=== PATIENT | male | born 1960 | race Asian ===

== ENCOUNTER 2020-04-20 11:50 | Outpatient (REF) | payer OTHER, SELFPAY | END 2020-04-20 11:51 | disposition home or self-care (01) | LOC: HO.BBR 11:50 | PROVIDERS: Visit Provider Internal Medicine | DX: D75.1 Secondary polycythemia (principal) | CPT/HCPCS: 36415; 85018; 99195 ==

== ENCOUNTER 2020-09-12 14:21 | Outpatient (REF) | payer OTHER, SELFPAY | END 2020-09-12 14:22 | disposition home or self-care (01) | LOC: HO.BBR 14:21 | PROVIDERS: Visit Provider Internal Medicine | DX: D45 Polycythemia vera (principal) | CPT/HCPCS: 85014; 85018; 99195 ==

== ENCOUNTER 2021-01-10 13:03 | Outpatient (REF) | payer OTHER, SELFPAY | END 2021-01-10 13:04 | disposition home or self-care (01) | LOC: HO.BBR 13:03 | PROVIDERS: Visit Provider Internal Medicine | DX: D45 Polycythemia vera (principal) | CPT/HCPCS: 36415; 85018; 99195 ==

== ENCOUNTER 2021-05-14 13:00 | Outpatient (REF) | payer OTHER, SELFPAY | END 2021-05-14 13:01 | disposition home or self-care (01) | LOC: HO.BBR 13:00 | PROVIDERS: Visit Provider Internal Medicine | DX: D45 Polycythemia vera (principal) | CPT/HCPCS: 85014; 85018; 99195 ==

== ENCOUNTER 2021-08-28 14:00 | Outpatient (REF) | payer OTHER, SELFPAY | END 2021-08-28 14:01 | disposition home or self-care (01) | LOC: HO.BBR 14:00 | PROVIDERS: Visit Provider Internal Medicine | DX: D45 Polycythemia vera (principal) | CPT/HCPCS: 85018; 99195 ==

== ENCOUNTER 2021-12-28 10:43 | Outpatient (REF) | payer OTHER, SELFPAY | END 2021-12-28 10:44 | disposition home or self-care (01) | LOC: HO.BBR 10:43 | PROVIDERS: Visit Provider Internal Medicine | DX: D45 Polycythemia vera (principal) | CPT/HCPCS: 85018; 99195 ==

== ENCOUNTER 2022-04-29 10:54 | Outpatient (REF) | payer OTHER, SELFPAY | END 2022-04-29 10:55 | disposition home or self-care (01) | LOC: HO.BBR 10:54 | PROVIDERS: Visit Provider Internal Medicine | DX: Z13.89 Encounter for screening for other disorder (principal) ==

== ENCOUNTER 2022-07-29 10:51 | Outpatient (REF) | payer OTHER, SELFPAY | END 2022-07-29 10:52 | disposition home or self-care (01) | LOC: HO.BBR 10:51 | PROVIDERS: Visit Provider Internal Medicine | DX: D45 Polycythemia vera (principal) | CPT/HCPCS: 85014; 85018; 99195 ==

== ENCOUNTER 2022-10-29 10:48 | Outpatient (REF) | payer OTHER, SELFPAY | END 2022-10-29 10:49 | disposition home or self-care (01) | LOC: HO.BBR 10:48 | PROVIDERS: Visit Provider Internal Medicine | DX: D45 Polycythemia vera (principal) | CPT/HCPCS: 85018; 99195 ==

== ENCOUNTER 2023-01-28 10:57 | Outpatient (REF) | payer OTHER, SELFPAY | END 2023-01-28 10:58 | disposition home or self-care (01) | LOC: HO.BBR 10:57 | PROVIDERS: Visit Provider Internal Medicine | DX: D75.1 Secondary polycythemia (principal) | CPT/HCPCS: 85018; 99195 ==

== ENCOUNTER 2023-04-29 10:57 | Outpatient (REF) | payer OTHER, SELFPAY | END 2023-04-29 10:58 | disposition home or self-care (01) | LOC: HO.BBR 10:57 | PROVIDERS: Visit Provider Internal Medicine | DX: D75.1 Secondary polycythemia (principal) | CPT/HCPCS: 85018; 99195 ==

== ENCOUNTER 2023-07-29 10:51 | Outpatient (REF) | payer OTHER, SELFPAY | END 2023-07-29 10:52 | disposition home or self-care (01) | LOC: HO.BBR 10:51 | PROVIDERS: Visit Provider Internal Medicine | DX: D75.1 Secondary polycythemia (principal) | CPT/HCPCS: 85018; 99195 ==

== ENCOUNTER 2023-10-29 10:39 | Outpatient (REF) | payer OTHER, SELFPAY | END 2023-10-29 10:40 | disposition home or self-care (01) | LOC: HO.BBR 10:39 | PROVIDERS: Visit Provider Internal Medicine | DX: D75.1 Secondary polycythemia (principal) | CPT/HCPCS: 85014; 85018; 99195 ==

== ENCOUNTER 2024-01-20 10:02 | Outpatient (REF) | payer OTHER, SELFPAY | END 2024-01-20 10:03 | disposition home or self-care (01) | LOC: HO.BBR 10:02 | PROVIDERS: Visit Provider Internal Medicine | DX: D75.1 Secondary polycythemia (principal) | CPT/HCPCS: 85018; 99195 ==

== ENCOUNTER 2024-05-07 13:00 | Outpatient (REF) | payer OTHER, SELFPAY | END 2024-05-07 13:01 | disposition home or self-care (01) | LOC: HO.BBR 13:00 | PROVIDERS: Visit Provider Internal Medicine | DX: D75.1 Secondary polycythemia (principal) | CPT/HCPCS: 85014; 85018; 99195 ==

== ENCOUNTER 2024-10-18 12:35 | Outpatient (REF) | payer OTHER, SELFPAY ==
--- OUTSIDE RECORDS SUMMARY | 2024-10-18 13:35 | XMS_ITS | Clinical Summary ---
Author Organization [facility] Address [address] [facility] [address] [place] [address] Phone Care Team Providers Care Packing Attendant Name Role Phone Siri Gonzalez PA-C Primary Care Provider + Allergies No known active allergies Medications Vitamin D, Cholecalciferol , 25 MCG (1000 UT) tablet Take 1 tablet by mouth 1 (one) time each day 90 tablet 3 1 Active famotidine (Pepcid) 40 MG tablet Take 1 tablet (40 mg total) by mouth 1 (one) time each day 90 tablet 3 2 Active [place]-3 Fatty Acids (Fish Oil) 1000 MG capsule delayed-release Take by mouth 2 (two) times a day Active fluticasone (FLONASE) 50 MCG/ACT nasal spray Administer 1 spray into each nostril 1 (one) time each day Active spironolactone- hydroCHLOROthia zide (Aldactazide) 25-25 MG per tablet Take 1 tablet by mouth 3 (three) times a week 36 tablet 3 4 01/28/20 25 Active pravastatin (PRAVACHOL) 40 MG tablet TAKE 1 TABLET ONCE DAILY 30 tablet 11 4 Active tamsulosin (FLOMAX) 0.4 MG 24 hr capsule TAKE 1 CAPSULE ONCE DAILY 90 capsule 3 4 Active Diclofenac Sodium 1 % gel Apply topically Active lisinopril 20 MG tablet Take 1 tablet (20 mg total) by mouth 1 (one) time each day 90 tablet 3 4 03/29/20 25 Active Active Problems Problem Noted Date Diagnosed Date Hypertension 01/10/2021 Dyslipidemia 01/10/2021 Small kidney <Unspecified side> 01/10/2021 Polycythemia 01/10/2021 Cyst of kidney 01/10/2021 Monoclonal gammopathy of undetermined significan ce (MGUS) 01/10/2021 IgA nephropathy 01/10/2021 Proteinuria 07/12/2020 Hypertensive heart disease without heart failure 07/12/2020 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 [address] [phone] Ko Truong MD Chronic kidney disease, stage 2 (mild); IgA nephropathy; Hypertensive heart disease without heart failure, not otherwise specified; Hypertension; Monoclonal gammopathy of undetermined significance (MGUS); Proteinuria, not otherwise specified from Last 3 Months Immunizations Immunization Administration Dates Next Due Influenza TIV (IM) 02/16/2019,04/20/2018 Family History Medical History Relation Comments Hypertension Mother Relation Status Comments Father Mother Social History Tobacco Use Types Packs/Day Years Used Date Smoking Tobacco: Never Smokeless Tobacco: Never Alcohol Use Standard Drinks/Week Comments No 0 (1 standard drink = 0.6 oz pur e alcohol) Sex and Gender Information Value Date Recorded Sex Assigned at Not on file Legal Sex Male 5:12 PM EST Gender Identity Not on file Sexual Orientation Not on file Last Filed Vital Signs Vital Sign Reading Time Taken Comments Blood Pressure 98/70 03/29/2024 9:22 AM EST Pulse 105 03/29/2024 9:22 AM EST Temperature - - Respiratory Rate - - Oxygen Saturation 97% 03/29/2024 9:22 AM EST Inhaled Oxygen Concentration - - Weight 65.8 kg (145 lb) 03/29/2024 9:22 AM EST Height 157.5 cm (5' 2 ) 01/28/2024 8:39 AM EDT Body Mass Index 26.52 01/28/2024 8:39 AM EDT Plan of Treatment Upcoming Encounters Date Type Department Care Team (Late st Contact Info) Description 10/28/2024 9:00 AM EDT Office Visit [facility] [address] [phone] Ko Truong MD [address] [phone] Health Maintenance Due Date Last Done Comments Pneumococcal Vaccine: 50+ Years (1 of 2 - PCV) 1980 Colorectal Cancer Screening: Annual FOBT 2010 Colorectal Cancer Screening: Colonoscopy 2010 Colorectal Cancer Screening: Sigmoidoscopy 2010 Influenza Vaccine (Season Ended) 2025 02/16/2019, 04/20/2018 Hepatitis B Vaccine Aged Out 03/29/2024, 01/30/2024, 01/28/2024, Additional history exists No longer eligible based on patient's age to complete this topic Care Teams Packing Attendant Relationship Specialty Start Date End Date Siri Gonzalez PA-C [address] [place], [place] PCP - General Physician Veterinary Technology Instructor 01/11/21
== END 2024-10-18 12:36 | disposition home or self-care (01) ==
LOC: HO.BBR 12:35
PROVIDERS: Visit Provider Internal Medicine
DX: D75.1 Secondary polycythemia (principal)
CPT/HCPCS: 85014; 85018; 99195

== ENCOUNTER 2024-10-19 12:37 | Outpatient (REF) | payer OTHER, SELFPAY ==
--- OUTSIDE RECORDS SUMMARY | 2024-10-19 13:58 | XMS_ITS | Clinical Summary ---
Author Organization [facility] Address [address] [facility] [address] [place] [address] Phone Care Team Providers Care Critical Care Specialist Name Role Phone Siri Gonzalez PA-C Primary Care Provider + Allergies No known active allergies Medications Vitamin D, Cholecalciferol , 25 MCG (1000 UT) tablet Take 1 tablet by mouth 1 (one) time each day 90 tablet 3 1 Active famotidine (Pepcid) 40 MG tablet Take 1 tablet (40 mg total) by mouth 1 (one) time each day 90 tablet 3 2 Active [place]-3 Fatty Acids (Fish Oil) 1000 MG capsule [...] Orders Only [facility] [address] [phone] Ko Truong MD Chronic kidney disease, stage [...] Visit [facility] [address] [phone] Ko Truong MD [address] [facility] [address] [place] [address] Health Maintenance Due Date Last Done Comments Pneumococcal Vaccine: 50+ Years (1 of 2 - PCV) 1980 Colorectal Cancer Screening: Annual FOBT 2010 Colorectal Cancer Screening: Colonoscopy 2010 Colorectal Cancer Screening: Sigmoidoscopy 2010 Influenza Vaccine (Season Ended) 2025 02/16/2019, 04/20/2018 Hepatitis B Vaccine Aged Out 03/29/2024, 01/30/2024, 01/28/2024, Additional history exists No longer eligible based on patient's age to complete this topic Procedures Procedure Name Priority Date/Time Associated Diagnosis Comments PROTEIN / CREATININE RATIO, URINE Routine 10/18/2024 8:35 AM EDT Chronic kidney disease, stage 2 (mild) IgA nephropathy Hypertensive heart disease without heart failure, not otherwise specified Hypertension Monoclonal gammopathy of undetermined significance (MGUS) Proteinuria, not otherwise specified CBC AND DIFFERENTIAL Routine 10/18/2024 8:35 AM EDT Chronic kidney disease, stage 2 (mild) IgA nephropathy Hypertensive heart disease without heart failure, not otherwise specified Hypertension Monoclonal gammopathy of undetermined significance (MGUS) Proteinuria, not otherwise specified VITAMIN D 25 HYDROXY Routine 10/18/2024 8:35 AM EDT Chronic kidney disease, stage 2 (mild) IgA nephropathy Hypertensive heart disease without heart failure, not otherwise specified Hypertension Monoclonal gammopathy of undetermined significance (MGUS) Proteinuria, not otherwise specified PTH, INTACT Routine 10/18/2024 8:35 AM EDT Chronic kidney disease, stage 2 (mild) IgA nephropathy Hypertensive heart disease without heart failure, not otherwise specified Hypertension Monoclonal gammopathy of undetermined significance (MGUS) Proteinuria, not otherwise specified PHOSPHATE ( PHOSPHORUS) Routine 10/18/2024 8:35 AM EDT Chronic kidney disease, stage 2 (mild) IgA nephropathy Hypertensive heart disease without heart failure, not otherwise specified Hypertension Monoclonal gammopathy of undetermined significance (MGUS) Proteinuria, not otherwise specified MAGNESIUM Routine 10/18/2024 8:35 AM EDT Chronic kidney disease, stage 2 (mild) IgA nephropathy Hypertensive heart disease without heart failure, not otherwise specified Hypertension Monoclonal gammopathy of undetermined significance (MGUS) Proteinuria, not otherwise specified URIC ACID Routine 10/18/2024 8:35 AM EDT Chronic kidney disease, stage 2 (mild) IgA nephropathy Hypertensive heart disease without heart failure, not otherwise specified Hypertension Monoclonal gammopathy of undetermined significance (MGUS) Proteinuria, not otherwise specified COMPREHENSIVE METABOLIC PANEL Routine 10/18/2024 8:35 AM EDT Chronic kidney disease, stage 2 (mild) IgA nephropathy Hypertensive heart disease without heart failure, not otherwise specified Hypertension Monoclonal gammopathy of undetermined significance (MGUS) Proteinuria, not otherwise specified from Last 3 Months Results * Vitamin D 25 Hydroxy (10/18/2024 8:35 AM EDT) Vitamin D, 25-OH, Total 65.0 30.0 - 100.0 ng/mL [facility] Comment: Vitamin D deficiency has been defined by the [employer] and an Endocrine Society practice guideline as a level of serum 25-OH vitamin D less than 20 ng/mL (1,2). The Endocrine Society went on to further define vitamin D insufficiency as a level between 21 and 29 ng/mL (2). 1. IOM ([employer]). 2010. Dietary reference ?? intakes for calcium and D. [place]: The ?? National Academies Press. 2. Omayra MF, Edmund NC, Lars VELA, et al. ?? Evaluation, treatment, and prevention of vitamin D ?? deficiency: an Endocrine Society clinical practice ?? guideline. JCEM. 2010; 96(7):1911-30. Blood specimen (specimen) Venous blood / Unknown 10/18/2024 8:35 AM EDT 10/18/2024 us Ko Truong MD LAB BLOOD ORDERABLES Final Re sult [facility] [address] [place] [phone] * CBC and Differential (10/18/2024 8:35 AM EDT) [facility] WBC 7.0 3.4 - 10.8 x10E3/uL [facility] RBC 5.53 4.14 - 5.80 x10E6/uL [facility] Hemoglobin 16.4 13.0 - 17.7 g/dL [facility] Hematocrit 49.5 37.5 - 51.0 % [facility] MCV 90 79 - 97 fL [facility] MCH 29.7 26.6 - 33.0 pg [facility] MCHC 33.1 31.5 - 35.7 g/dL [facility] RDW 13.9 11.6 - 15.4 % [facility] Platelets 381 150 - 450 x10E3/uL [facility] Neutrophils Relative 68 Not Estab. % [facility] Lymphocytes Relative 22 Not Estab. % [facility] Monocytes 8 Not Estab. % [facility] Eosinophils Relative 2 Not Estab. % [facility] Basophils Relative 0 Not Estab. % [facility] Neutrophils Absolute 4.7 1.4 - 7.0 x10E3/uL [facility] Lymphocytes Absolute 1.6 0.7 - 3.1 x10E3/uL [facility] Monocytes Absolute 0.6 0.1 - 0.9 x10E3/uL [facility] Eosinophils Absolute 0.2 0.0 - 0.4 x10E3/uL [facility] Basophils Absolute 0.0 0.0 - 0.2 x10E3/uL [facility] Immature Granulocytes 0 Not Estab. % [facility] Immature Grans (Absolute) 0.0 0.0 - 0.1 x10E3/uL [facility] Blood specimen (specimen) Venous blood / Unknown 10/18/2024 8:35 AM EDT 10/18/2024 Ko Truong MD LAB BLOOD ORDERABLES Final Re sult Performing Organization Address [facility] de Phone Number [facility] [address] [place] [address] * Uric Acid (10/18/2024 8:35 AM EDT) Uric Acid 8.3 3.8 - 8.4 mg/dL [facility] Comment:Therapeutic target f or gout patients: <6.0 Blood specimen (specimen) Venous blood / Unknown 10/18/2024 8:35 AM EDT 10/18/2024 Ko Truong MD LAB BLOOD ORDERABLES Final Re sult Performing Organization Address [facility] de Phone Number [facility] [address] [place] [address] * Phosphorus (10/18/2024 8:35 AM EDT) Phosphorus 3.4 2.8 - 4.1 mg/dL [facility] Blood specimen (specimen) Venous blood / Unknown 10/18/2024 8:35 AM EDT 10/18/2024 Ko Truong MD LAB BLOOD ORDERABLES Final Re sult Performing Organization Address [facility] Co de Phone Number [facility] [address] [place] [address] * PTH, Intact (10/18/2024 8:35 AM EDT) Pathologist [facility] PTH 23 15 - 65 pg/mL [facility] Blood specimen (specimen) Venous blood / Unknown 10/18/2024 8:35 AM EDT 10/18/2024 Ko Truong MD LAB BLOOD ORDERABLES Final Re sult Performing Organization Address City/[facility]/ZIP Co de Phone Number [facility] [address] [place] [address] * Magnesium (10/18/2024 8:35 AM EDT) Pathologist [facility] Magnesium 2.1 1.6 - 2.3 mg/dL [facility] Blood specimen (specimen) Venous blood / Unknown 10/18/2024 8:35 AM EDT 10/18/2024 Ko Truong MD LAB BLOOD ORDERABLES Final Re sult Performing Organization Address City/[facility]/ZIP Co de Phone Number [facility] [address] [place] [address] * (ABNORMAL) Comprehensive Metabolic Panel (10/18/2024 8:35 AM EDT) Pathologist [facility] Glucose 102(H) 70 - 99 mg/dL [facility] BUN 38(H) 8 - 27 mg/dL [facility] Creatinine 1.70(H) 0.76 - 1.27 mg/dL [facility] eGFR CKD-EPI CR 2020 45(L) >59 mL/min/1.7 3 [facility] BUN/Creatinine Ratio 22 10 - 24 [facility] Sodium 137 134 - 144 mmol/L [facility] Potassium 5.0 3.5 - 5.2 mmol/L [facility] Chloride 101 96 - 106 mmol/L [facility] Bicarbonate (CO2) 19(L) 20 - 29 mmol/L [facility] Calcium 9.8 8.6 - 10.2 mg/dL [facility] Total Protein 7.8 6.0 - 8.5 g/dL [facility] Albumin 4.5 3.9 - 4.9 g/dL [facility] Globulin 3.3 1.5 - 4.5 g/dL [facility] Total Bilirubin 0.7 0.0 - 1.2 mg/dL [facility] Alkaline Phosphatase 78 44 - 121 IU/L [facility] AST (SGOT) 30 0 - 40 IU/L [facility] ALT (SGPT) 39 0 - 44 IU/L [facility] Blood specimen (specimen) Venous blood / Unknown 10/18/2024 8:35 AM EDT 10/18/2024 us Ko Truong MD LAB BLOOD ORDERABLES Final Re sult [facility] [address] [place] [address] from Last 3 Months Care Teams Critical Care Specialist Relationship Specialty Start Date End Date Siri Gonzalez PA-C [facility] [place], [place] PCP - General Physician [employer] Treatment Operator 01/11/21
== END 2024-10-19 12:38 | disposition home or self-care (01) ==
LOC: HO.BBR 12:37
PROVIDERS: Visit Provider Internal Medicine
DX: D75.1 Secondary polycythemia (principal)
CPT/HCPCS: 85018; 99195